=== PATIENT | male | born 1970 | race Caucasian/White ===

== ENCOUNTER 2023-07-15 17:31 | Emergency (ER) | payer SELFPAY ==
[2023-07-15] VITALS (7 sets, daily range): BP systolic 112–136; BP diastolic 61–91
[~2023-07-15] VITALS: Ht 188 cm; Wt 84.0 kg
[~2023-07-15 17:31] MED LIST: NAPROSYN500 MG PO; NO
[2023-07-15 18:26] LABS: BASO% 0.3 % (0-3); EOS% 1.9 % (0-8); HEMATOCRIT 38.7 % (39.0-50.0); HEMOGLOBIN 12.9 g/dl (14.0-18.0); IMMATURE GRANULOCYTES 0.1 % (0.0-5.0); LYMPH% 9.9 % (15-41); MEAN CELL VOLUME 91.7 fL CALC (80.0-100.0); MEAN CORPUSCULAR HGB 30.6 pG CALC (26.0-32.0); MEAN CORPUSCULAR HGB CONC 33.3 g/dL CAL (32.0-36.0); MONO% 4.5 % (2-13); NEUT# 10.76 thou/uL (1.82-7.42); NEUT% 83.3 % (42-76); RED BLOOD COUNT 4.22 mill/uL (4.70-6.10); RED CELL DISTRI WIDTH 12.3 % (11.5-15.5)
[2023-07-15 18:52] LABS: ALBUMIN 3.9 g/dL (3.2-5.0); ALKALINE PHOSPHATASE 89 u/l (38-126); ANION GAP 13 (6-22 (CALC)); BILIRUBIN, TOTAL 0.7 mg/dL (0.2-1.3); BUN 15 mg/dL (9-20); BUN/CREATININE RATIO 13 (12-20 (CALC)); CARBON DIOXIDE 23 mmol/l (22-30); CHLORIDE 104 mmol/l (95-108); CREATININE 1.2 mg/dL (0.7-1.3); ETHYL ALCOHOL 85 mg/dl (0-30); GFR FOR AFR.AMER. > 60 ML/MIN (>=60 (CALC)); GFR OTHER RACES > 60 ML/MIN (>=60 (CALC)); LIPASE 65 u/l (23-300); POTASSIUM 3.5 mmol/l (3.5-5.1); SGOT/AST 41 u/l (17-59); SODIUM 137 mmol/l (137-146); TOTAL PROTEIN 7.1 g/dL (6.3-8.2)
[2023-07-15] MEDS ORDERED: VOLTAREN - GENE75 MG PO (20:58)
== END 2023-07-15 21:29 | disposition home or self-care (01) | DRG 84 ==
LOC: ED 17:31
PROVIDERS: Nurse Practitioner
DX: S06.9X9A Unspecified intracranial injury with loss of consciousness of unspecified duration, initial encounter (principal); S52.042A Displaced fracture of coronoid process of left ulna, initial encounter for closed fracture; S00.01XA Abrasion of scalp, initial encounter; S83.92XA Sprain of unspecified site of left knee, initial encounter; S00.03XA Contusion of scalp, initial encounter; S80.212A Abrasion, left knee, initial encounter; S20.312A Abrasion of left front wall of thorax, initial encounter; F10.129 Alcohol abuse with intoxication, unspecified; Y90.4 Blood alcohol level of 80-99 mg/100 ml; F17.200 Nicotine dependence, unspecified, uncomplicated; V18.0XXA Pedal cycle driver injured in noncollision transport accident in nontraffic accident, initial encounter; Y93.55 Activity, bike riding